=== PATIENT | male | born 1990 | race American Indian/Alaskan Native ===

== ENCOUNTER 2016-12-10 19:18 | Emergency (ER) | payer SELFPAY ==
[2016-12-10] MEDS ORDERED: TORADOL IM ONE (22:20)
[2016-12-10] MEDS ORDERED: BOOSTRIX IM ONE (22:31)
--- NOTE | 2016-12-10 22:31 | Emergency Department Report ---
ED Laceration HPI - HPI Chief Complaint: Wound/Laceration Stated Complaint: WRIST LAC Occurred When: Today Laceration Symptoms: Yes Pain, No Foreign Body Sensation, No Numbness, No Weakness Other History: Patient states he slit his left wrist on a broken glass cup at his home kitchen. Reports mild pain rated 5/10 on numeric scale. Denies weakness, tingling, numbness. Last Tetanus shot unknown. ED Review of Systems ROS: Stated complaint: WRIST LAC Other details as noted in HPI Comment: All other systems reviewed and negative ED Past Medical Hx - Past Medical History Previous Medical History?: Yes Hx Seizures: Yes (as child after hitting head but none since.) - Surgical History Past Surgical History?: No - Medications Home Medications: Home Medications Medication Instructions Recorded Confirmed Last Taken Type Ibuprofen [Motrin] 600 mg PO Q8H PRN #15 tablet 12/10/16 Unknown Rx Laceration Physical Exam - Exam General: Vital signs noted. No distress. Alert and acting appropriately. Wound Length (cm): 1 Laceration Location: Upper Extremity (Superficial on Volar aspect of L wrist. 2 + Radial and ulna pulses. Distal sensations intact. FROM in wrist. No active bleed.) Laceration Exam: Yes Normal Distal CMS, No Foreign Body, No Exposed Tendon, Vessel, or Nerve, No Tendon Injury ED Course Vital Signs 12/10/16 19:35 Temperature 99.2 F Pulse Rate 94 H Respiratory 18 Rate Blood Pressure 120/76 O2 Sat by Pulse 100 Oximetry - Laceration /Wound Repair Left Volar Wrist Wound Length (cm): 1 Wound's Depth, Shape: superficial Wound Explored: no foreign body removed Irrigated w/ Saline (ccs): 100 Betadine Prep?: Yes Wound Debrided: minimal Wound Repaired With: Dermabond Layer Closure?: No Sterile Dressing Applied?: Yes Progress: Patient tolerated procedure and progressed well. Range of motion remains full in all directions. Distal pulses remain strong and bounding. Critical care attestation.: If time is entered above; I have spent that time in minutes in the direct care of this critically ill patient, excluding procedure time. ED Disposition Clinical Impression: Laceration of wrist, left Qualifiers: Encounter type: initial encounter Qualified Code(s): S61.512A - Laceration without foreign body of left wrist, initial encounter Disposition: DISCHARGED TO HOME OR SELFCARE Is pt being admited?: No Does the pt Need Aspirin: No Condition: Stable Instructions: Acute Wound Care (ED), Skin Adhesive Care (ED) Prescriptions: Ibuprofen [Motrin] 600 mg PO Q8H PRN #15 tablet PRN Reason: Pain Referrals: PRIMARY CARE,MD [Primary Care Provider] - 2-3 Days [facility] [Outside] - 2-3 Days
[2016-12-10 23:33] VITALS: BP 122/70
== END 2016-12-10 23:43 | disposition home or self-care (01) ==
LOC: ED 19:18
DX: S61.512A Laceration without foreign body of left wrist, initial encounter (principal); W25.XXXA Contact with sharp glass, initial encounter; Y93.9 Activity, unspecified; Y92.9 Unspecified place or not applicable; Y99.9 Unspecified external cause status
CPT/HCPCS: 12001; 90471; 90715; 96372; 99282; J1885